=== PATIENT | male | born 1985 | race Caucasian/White ===

== ENCOUNTER 2016-10-29 08:03 | Emergency (ER) | payer SELFPAY ==
[~2016-10-29] VITALS: Ht 190.5 cm; Wt 125.0 kg
[~2016-10-29 08:03] MED LIST: AMLO5TAB2 PO; ATOR20TA15 PO; ERGO1CAP10 PO; FERR325T PO; GLIM2TAB PO; LEVEMIR SQ; LISI-515 PO; LOTR1CRE TOPICAL; METF1000 PO; VENTAER INH
[2016-10-29 08:05] VITALS: BP 159/77; PULSE 84; RESP 17; TEMP 97.7; O2SAT 99
--- NOTE | 2016-10-29 08:14 | PD ---
HPI . possible perineum abscess Chief Complaint: Skin Problem Time Seen by Provider: 08:14 Travel History International Travel<30 days: No Contact w/Intl Traveler<30days: No Traveled to known affect area: No History of Present Illness HPI 31-year-old male with hypertension, diabetes and hyperlipidemia and recurrent perineal abscess here with complaints of a possible perineum abscess. Patient says that last year he had a perineal abscess that required drainage. He is here thinking that he has an abscess and that it may need to be drained. He says it's been there since yesterday. He denies any fever or chills. He has no other complaints. PFSH Past Medical History Cardiovascular Problems: Yes (htn) Diabetes: Yes Endocrine: No Genitourinary: No Immune Disorder: No Musculoskeletal: No Neurologic: No Psychiatric: No Reproductive: No Respiratory: No Past Surgical History Appendectomy: Yes Social History Alcohol Use: No Tobacco Use: No Substance Use: Yes (MJ) Allergies-Medications (Allergen,Severity, Reaction): Coded Allergies: Red Dyes - Various (Verified Allergy, Intermediate, 10/29/16) fever, nauseau Reported Meds & Prescriptions Reported Meds & Active Scripts Active Clindamycin (Clindamycin HCl) 300 Mg Cap 300 Mg PO TID Atorvastatin (Atorvastatin Calcium) 20 Mg Tab 20 Mg PO HS Ferrous Sulfate 325 Mg Tab 325 Mg PO BID Lisinopril 20 Mg Tab 20 Mg PO DAILY Glimepiride 2 Mg Tab 2 Mg PO DAILY Take with breakfast or first main meal Metformin (Metformin HCl) 1,000 Mg Tab 1,000 Mg PO BIDPC With meals Ferrous Sulfate 325 Mg Tab 325 Mg PO BID Amlodipine (Amlodipine Besylate) 5 Mg Tab 5 Mg PO DAILY Review of Systems General / Constitutional: No: Fever Eyes: No: Visual changes HENT: No: Headaches Cardiovascular: No: Chest Pain or Discomfort Respiratory: No: Shortness of Breath Gastrointestinal: No: Abdominal Pain Genitourinary: No: Dysuria Musculoskeletal: No: Pain Skin: Positive Other (perineal swelling), No Rash Neurologic: No: Weakness Psychiatric: No: Depression Endocrine: No: Polydipsia Hematologic/Lymphatic: No: Easy Bruising Physical Exam Narrative GENERAL: AAO x 3, no acute distress, Well-nourished, well-developed patient. SKIN: Warm and dry. No visible rashes or bruising. HEAD: Normocephalic and atraumatic. EYES: No scleral icterus. No injection or drainage. ENT: No nasal drainage noted. . Airway patent. NECK: Supple, trachea midline. No JVD. CARDIOVASCULAR: Regular rate and rhythm without murmurs, gallops, or rubs. RESPIRATORY: Breath sounds equal bilaterally. No accessory muscle use. No rhonchi or rales. GASTROINTESTINAL: Abdomen soft, non-tender, nondistended. GENITAL: Jomar clock and watch hands painter present: 2 cm induration without any fluctuance present inferior to scrotum on the left side. No erythema or abscess formation. EXTREMITIES: No cyanosis or edema. BACK: Nontender without obvious deformity. No CVA tenderness. PSYCH: AAO x 3, normal affect. Data Data Last Documented VS Vital Signs Date Time Temp Pulse Resp B/P Pulse Ox O2 Delivery O2 Flow Rate FiO2 10/29/16 08:05 97.7 84 17 159/77 99 MDM Medical Decision Making Medical Screen Exam Complete: Yes Emergency Medical Condition: Yes Medical Record Reviewed: Yes Differential Diagnosis ingrown hair follicle, cellulitis, early abscess, less likely abscess Narrative Course 31-year-old male with hypertension, diabetes and hyperlipidemia and recurrent perineal abscess here with complaints of a possible perineum abscess. Patient says that last year he had a perineal abscess that required drainage. He is here thinking that he has an abscess and that it may need to be drained. He says it's been there since yesterday. He denies any fever or chills. He has no other complaints. Patient seen and examined. He has a 2 cm small area of induration inferior to his scrotum. It is not a definitive abscess. This appears to be the start of a perineal abscess. At this point, there is nothing to be drained. There is no fluctuance. I've explained to the patient at length. I will go ahead and cover him with some antibiotics. He tells me that he has a bunch of clindamycin at home and would like to be placed on that if possible. I will go ahead and start him on clindamycin. He has been advised to follow-up with his primary care provider. I've advised him if this area gets worse to come back to the emergency department. Patient verbalized understanding of instructions, questions were answered, and thanked me for their care. I advised them if their condition worsens, please return to the nearest emergency room for further care. Diagnosis Primary Impression: Perineal abscess Patient Instructions: General Instructions Additional Instructions: You can try to use warm compresses to the area to see if a head develops. If it does, you can come back to the emergency department to have it drained. Please return to emergency department if your symptoms return or worsen. Follow up with your primary care provider. Take medications as prescribed. Med/Other Pt SpecificInfo: Prescription(s) given Scripts Clindamycin 300 Mg [id number] Mg PO TID #21 CAP Prov:Paola Bailey MD 10/29/16 Disposition: 01 DISCHARGE HOME Condition: Stable Merry Pozo October 29, 2016 08:14
[2016-10-29] MEDS ORDERED: CLIN1CAP6 PO (08:24)
[2016-11-04] MEDS ORDERED: AMLO5TAB2 PO (11:47)
[2016-11-04] MEDS ORDERED: METF1000 PO (11:48)
[2016-12-04] MEDS ORDERED: GLIM2TAB PO (12:42)
== END 2016-10-29 08:39 | disposition home or self-care (01) ==
LOC: NEPK 08:03
DX: L02.91 Cutaneous abscess, unspecified (principal); E11.9 Type 2 diabetes mellitus without complications; I10 Essential (primary) hypertension
CPT/HCPCS: 99282

== ENCOUNTER 2016-12-03 09:30 | Emergency (ER) | payer SELFPAY ==
[~2016-12-03] VITALS: Ht 188 cm; Wt 130.0 kg
[~2016-12-03 09:30] MED LIST changes: +CLIN1CAP6 PO; -ERGO1CAP10 PO; -LEVEMIR SQ; -LOTR1CRE TOPICAL; -VENTAER INH
[2016-12-03 09:31] VITALS: BP 140/79; PULSE 78; RESP 20; TEMP 97.8; O2SAT 99
--- NOTE | 2016-12-03 10:15 | PD ---
HPI Chief Complaint: Edema Time Seen by Provider: 09:50 Travel History International Travel<30 days: No Contact w/Intl Traveler<30days: No Traveled to known affect area: No History of Present Illness HPI This is a 31-year-old male who has a history of diabetes and recurrent perineal abscesses who presents to the emergency department with 24 hours of swelling in his scrotum. He says he went to a football game yesterday when he came back he felt like his scrotum felt abnormal. He denies any pain and he is been urinating normally but he said this morning he still felt the swelling in his scrotum so he came here to the emergency department. He was concerned because once he was admitted 8 days for a perineal abscess and he didn't want that to recur. Currently he denies any penile discharge, fevers, chills or pain. PFSH Past Medical History Cardiovascular Problems: Yes (htn) High Cholesterol: Yes Diabetes: Yes Patient Takes Glucophage: Yes Diminished Hearing: No Endocrine: No Genitourinary: No Hypertension: Yes Immune Disorder: No Musculoskeletal: No Neurologic: No Psychiatric: No Reproductive: No Respiratory: No Immunizations Current: No Tetanus Vaccination: Unknown Influenza Vaccination: No Past Surgical History Appendectomy: Yes Other Surgery: Yes (I & D - SCROTOM ABSCESS ) Social History Alcohol Use: No Tobacco Use: No Substance Use: Yes (MARIJUANA - LAST USE WAS YESTERDAY ) Allergies-Medications (Allergen,Severity, Reaction): Coded Allergies: Red Dyes - Various (Verified Allergy, Intermediate, 12/03/16) fever, nauseau Reported Meds & Prescriptions Reported Meds & Active Scripts Active Metformin (Metformin HCl) 1,000 Mg Tab 1,000 Mg PO BIDPC With meals Amlodipine (Amlodipine Besylate) 5 Mg Tab 5 Mg PO DAILY Atorvastatin (Atorvastatin Calcium) 20 Mg Tab 20 Mg PO HS Ferrous Sulfate 325 Mg Tab 325 Mg PO BID Lisinopril 20 Mg Tab 20 Mg PO DAILY Glimepiride 2 Mg Tab 2 Mg PO DAILY Take with breakfast or first main meal Ferrous Sulfate 325 Mg Tab 325 Mg PO BID Review of Systems Except as stated in HPI: all other systems reviewed are Neg Physical Exam Narrative GENERAL:Well appearing, no acute distress SKIN: Focused skin assessment warm and dry. HEAD: Atraumatic. Normocephalic. EYES: Pupils equal and round. No injection or drainage. ENT: Moist mucous membranes NECK: Trachea midline. CARDIOVASCULAR: Regular rate and rhythm. No murmur appreciated. RESPIRATORY: Clear to auscultation. Breath sounds equal bilaterally. GASTROINTESTINAL: Abdomen soft, non-tender, nondistended. : Normal-appearing scrotum and perineum with no focal tenderness. MUSCULOSKELETAL: No obvious deformities. NEUROLOGICAL: Awake and alert. No obvious cranial nerve deficits. Moving all extremities. PSYCHIATRIC: Appropriate mood and affect; insight and judgment normal. Data Data Last Documented VS Vital Signs Date Time Temp Pulse Resp B/P Pulse Ox O2 Delivery O2 Flow Rate FiO2 12/03/16 09:49 Room Air 12/03/16 09:31 97.8 78 20 140/79 99 Orders Us Testicles W Doppler (12/03/16 ) [facility] Medical Decision Making Medical Screen Exam Complete: Yes Emergency Medical Condition: Yes Interpretation(s) Afebrile, no tachycardia, normotensive Last 24 hours Impressions Scrotum Ultrasound 12/03/16 0000 Signed Impressions: Service Date/Time: November 10:49 - CONCLUSION: 1. No acute abnormality. 2. Tiny right hydrocele. Reg Wayne Jr., MD Differential Diagnosis Perineal abscess, epididymitis, hydrocele, varicocele Narrative Course This is a 31-year-old male who has a history of diabetes and prior perineal abscesses in the past who presents the emergency department with subjective scrotal swelling. I don't really appreciate an abnormality on exam but due to his report I obtained an ultrasound. On demonstrates a small right sided hydrocele which may be the etiology of his symptoms. I don't think the patient has an infection and I think he is appropriate for outpatient follow-up with urology. Patient was discharged home. Diagnosis Primary Impression: Right hydrocele Referrals: Kilo Finney DO Patient Instructions: General Instructions Additional Instructions: If you develop severe or worsening abdominal pain, fever>100.4, persistent vomiting or inability to eat or drink return to the emergency department immediately. Follow-up with the urologist if your symptoms do not improve. Med/Other Pt SpecificInfo: No Change to Meds Disposition: 01 DISCHARGE HOME Condition: Stable Kimberley Hudson MD Dec 03, 2016 10:14
--- NOTE | 2016-12-03 13:45 | RADRPT ---
EXAM DATE/TIME: 12/03/2016 10:49 [facility] COMPARISON: No previous studies available for comparison. INDICATIONS : Scrotal swelling. MEDICAL HISTORY : Hypertension. Hypercholesterolemia. Diabetes. SURGICAL HISTORY : Appendectomy. I & D for scrotum abscess. ENCOUNTER: Initial ACUITY: 1 day PAIN SCORE: 0/10 LOCATION: Bilateral Testicles. MEASUREMENTS: RIGHT TESTICLE: 4.3 x 3.1 x 2.1cm LEFT TESTICLE: 4.3 x 3.1 x 2.2cm FINDINGS: RIGHT TESTICLE: Homogeneous echotexture without intra or extratesticular mass. Blood flow is symmetric and within no rmal limits. A trace amount of fluid consistent with a tiny hydrocele. No varicocele. Epididymis is within normal limits. LEFT TESTICLE: Homogeneous echotexture without intra or extratesticular mass. Blood flow is symmetric and within no rmal limits. No hydrocele or varicocele. A 5 mm focus of calcium is seen adjacent to the lower pole of the testicle approaching the epididymal tail. Epididymis is within normal limits. SCROTUM: Within normal limits. CONCLUSION: 1. No acute abnormality. 2. Tiny right hydrocele. Reg Wayne Jr., MD on December 03, 2016 at 13:28 Board Certified Radiologist. This report was verified electronically.
[2016-12-03 14:43] VITALS: BP 130/70
[2016-12-04] MEDS ORDERED: GLIM2TAB PO (12:42)
== END 2016-12-03 14:44 | disposition home or self-care (01) ==
LOC: NEPD 09:30
DX: N43.3 Hydrocele, unspecified (principal)
CPT/HCPCS: 76870; 93975; 99284